=== PATIENT | female | born 1975 | race African-American/Black ===

== ENCOUNTER 2022-07-30 15:08 | Observation (INO) ==
--- NOTE | 2022-07-30 15:42 | DR.NAUSEAF ---
HPI Time Seen Time Seen by Provider: 07/30/22 15:42 Primary Care Physician Primary Care Physician: APPLE HOROWITZ AT [facility] Complaints Chief Complaint:: WAS SEEN IN [facility] ON SATURDAY AND SATURDAY FOR VOMITTING AND CONT TO HAVE SAME SX X4 DAYS NOW. STOMACH AND BACK PAIN, WEAKNESS. HAVING EPIGASTRIC AND LOWER ABDOMINAL PAIN AND BILAT FLANK PAIN Self Treatment fo Chief Complaint: IS BEING TREATED FOR UTI BUT UNABLE TO HOLD DOWN MEDS COVID-19 Coronavirus risk:travel/contact w/high risk person: No Has patient experienced Coronavirus symptoms: No Source History Provided: Family Member Mode of Arrival Mode of Arrival: Wheelchair Timing Onset of Chief Complaint: 07/26/22 PMH PMH Past Medical History: Yes Past Medical History: Diabetes and Hypertension Past Medical History Comment: CHRONIC PANCREATITIS Past Surgical History: Yes Surgical History: and Cholecystectomy Family History History of Family Medical Conditions: Yes Family Medical History: Diabetes Mellitus and Hypertension Social History Does patient currently use any type of tobacco product: Yes Have you used tobacco products in the last 12 months: Yes Type of Tobacco Use: Smokeless Does any household member use tobacco: Yes Alcohol Use: Occasionally Do you use any recreational Drugs:: No Lives With: Alone Lives Where: Home Travel Risk Coronavirus risk:travel/contact w/high risk person: No Has patient experienced Coronavirus symptoms: No Infectious screening In the last 2 months have you had wt loss of >10#?: NO Have you had fever, night sweats or hemotysis?: No Have you traveled outside the country in the last 6 months?: No Isolation: Standard PE Vital Signs Vitals: Temperature 97.6 F Pulse Rate 108 Respiratory Rate 20 Blood Pressure [Left Arm] 173/97 Blood Pressure 135/83 O2 Sat by Pulse Oximetry 100 ROR Labs Reviewed Result Diagrams: 07/30/22 16:30 07/30/22 16:30 Laboratory: WBC 7.9 X10^3/uL (3.6-10.0) 07/30/22 16:30 RBC 4.48 X10^6/uL (3.5-5.4) 07/30/22 16:30 Hgb 10.4 g/dL (12.0-16.0) L 07/30/22 16:30 Hct 34.1 % (36.0-47.0) L 07/30/22 16:30 MCV 76.2 fL (80.0-100.0) L 07/30/22 16:30 MCH 23.2 pg (27.0-34.0) L 07/30/22 16: MCHC 30.4 g/dL (33.0-35.0) L 07/30/22 16:30 RDW 18.8 % (11.6-16.5) H 07/30/22 16:30 Plt Count 319 X10^3/uL (150.0-450.0) 07/30/22 16:30 MPV 9.1 fL (7.4-11.0) 07/30/22 16:30 Neut % (Auto) 77.2 % (42.0-75.0) H 07/30/22 16: Lymph % (Auto) 13.0 % (21.0-51.0) L 07/30/22 16:30 [place] % (Auto) 9.0 % (0.0-13.0) 07/30/22 16: Eos % (Auto) 0.0 % (0.9-2.9) L 07/30/22 16:30 Baso % (Auto) 0.8 % (0.2-1.0) 07/30/22 16:30 Neut # (Auto) 6.1 x10^3/uL (2.2-4.8) H 07/30/22 16:30 Lymph # (Auto) 1.0 X10^3/uL (1.3-2.9) L 07/30/22 16:30 [place] # (Auto) 0.7 x10^3/uL (0.3-0.8) 07/30/22 16:30 Eos # (Auto) 0.0 x10^3/uL (0.0-0.2) 07/30/22 16:30 Baso # (Auto) 0.1 X10^3/uL (0.0-0.1) 07/30/22 16: Absolute Nucleated RBC 0.0 /100WBC 07/30/22 16:30 Sample Site Rr 07/30/22 20:52 ABG pH 7.360 (7.35-7.45) 07/30/22 20:52 ABG pCO2 31.0 mmHg (35.0-45.0) L 07/30/22 20:52 ABG pO2 100.0 mmHg (80.0-100.0) 07/30/22 20:52 ABG HCO3 17.5 mmol/L (22-26) L* 07/30/22 20:52 ABG O2 Saturation 97.0 % (90-100) 07/30/22 20:52 ABG Base Excess -6.9 mmol/L (-2.0-2.0) L 07/30/22 20:52 [place] Test Pos 07/30/22 20:52 A-a Gradient 11.0 mmHg 07/30/22 20:52 FiO2 21.0 07/30/22 20:52 Blood Gas Comments Precious well sw 07/30/22 20:52 Sodium 142 mmol/L (136-145) 07/30/22 16:30 Corrected Sodium 152 mmol/L (136-145) H 07/30/22 16:30 Potassium 4.5 mmol/L (3.5-5.1) 07/30/22 16:30 Chloride 101 mmol/L (98-107) 07/30/22 16:30 Carbon Dioxide 21.6 mmol/L (21-32) 07/30/22 16:30 BUN 33 mg/dL (7-18) H 07/30/22 16:30 Creatinine 1.81 mg/dL (0.55-1.02) H 07/30/22 16:30 Est GFR (MDRD) Af Amer 38 (>60) L 07/30/22 16:30 Est GFR (MDRD) Non-Af 32 (>60) L 07/30/22 16:30 Glucose 499 mg/dL (65-99) H 07/30/22 16:30 POC Glucose (mg/dL) 173 mg/dL (65-99) H 07/30/22 22:16 Calcium 9.2 mg/dL (8.5-10.1) 07/30/22 16:30 Corrected Calcium TNP 07/30/22 16:30 Total Bilirubin 0.80 mg/dL (0.2-1.0) 07/30/22 16:30 AST 14 Units/L (15-37) L 07/30/22 16:30 ALT 25 Units/L (12-78) 07/30/22 16:30 Alkaline Phosphatase 99 Units/L (46-116) 07/30/22 16:30 Total Protein 8.2 g/dL (6.4-8.2) 07/30/22 16:30 Albumin 3.9 g/dL (3.4-5.0) 07/30/22 16:30 Globulin 4.3 g/dL (2.5-4.5) 07/30/22 16:30 Albumin/Globulin Ratio 0.9 Ratio (1.1-2.1) L 07/30/22 16:30 Amylase 49 Units/L (25-115) 07/30/22 16:30 Lipase 18 Units/L (73-393) L 07/30/22 16:30 Specimen Type Clean catch urine 07/30/22 15:50 Urine Color Yellow (YELLOW) 07/30/22 15:50 Urine Appearance Hazy (CLEAR) 07/30/22 15:50 Urine pH 5.0 (5.0 - 8.0) 07/30/22 15:50 Ur Specific [place] 1.020 (1.000-1.030) 07/30/22 15:50 Urine Protein 3+ (NEGATIVE) 07/30/22 15:50 Urine Glucose (UA) 4+ (NEGATIVE) 07/30/22 15:50 Urine Ketones 4+ (NEGATIVE) 07/30/22 15:50 Urine Blood 2+ (NEGATIVE) 07/30/22 15:50 Urine Nitrite Negative (NEGATIVE) 07/30/22 15:50 Urine Bilirubin 1+ (NEGATIVE) 07/30/22 15:50 Urine Urobilinogen Normal (NORMAL) 07/30/22 15:50 Ur Leukocyte Esterase 2+ (NEGATIVE) 07/30/22 15:50 Urine RBC 0-2 /HPF (0-3) 07/30/22 15:50 Urine WBC 20-30 /HPF (0-5) A 07/30/22 15:50 Ur Squamous Epith Cells Few /HPF (NEGATIVE) 07/30/22 15:50 Urine Bacteria Trace /HPF (NEGATIVE) 07/30/22 15:50 Hyaline Casts Few /LPF (NEGATIVE) 07/30/22 15:50 Urine Mucus Rare /HPF (NEGATIVE) 07/30/22 15:50 Ur Culture Indicated? Yes/culture set up 07/30/22 15:50 Acetone, Semi-Quant Large (NEGATIVE) H 07/30/22 16:30 Opioid Opioid Risk Tool Age (Phani box if 16-45): No History of Preadolescent Sexual Abuse: No Total: 0 Total Score Risk Category: Low Risk Copyright: Oliver FISHMAN predicting aberrant behaviors Discharge Plan Diagnosis Discharge Problem: Acute dehydration, UTI (urinary tract infection), Hyperglycemia, Diabetic ketosis Discharge Plan Patient Disposition: 09 ADMITTED INPATIENT Condition: Stable Orders to Discharge Patient Discharge Orders: Transfer (Routine); Ordered 07/30/22 Ordered By: BELINDA CHAVEZ
[2022-07-30] MEDS ORDERED: ZOFRAN INJ 4 MG VIAL IVP ONE ×2 (15:56→21:18)
[2022-07-30] MEDS ORDERED: DEMEROL INJ IVP ONE (15:56)
[2022-07-30] MEDS ORDERED: NS 1,000 ML IV 1,000 ML IV ONE ×2 (15:56→20:43)
[2022-07-30] MEDS ORDERED: ZOFRAN INJ 4 MG VIAL ONE ×2 (15:57→21:03)
[2022-07-30] MEDS ORDERED: NS 1,000 ML IV 1,000 ML ONE ×2 (15:57→21:03)
[2022-07-30] MEDS ORDERED: NS 50 ML IV 50 ML IV ONE (15:58)
[2022-07-30] MEDS ORDERED: PEPCID 20 MG VIAL 20 MG in NS 50 ML IV 50 ML IV ONE (15:58)
[2022-07-30] MEDS ORDERED: PEPCID 20 MG VIAL ONE (15:58)
[2022-07-30] MEDS ORDERED: DEMEROL INJ ONE (16:00)
[2022-07-30 16:28] LABS: BILIRUBIN,URINE 1+ (NEGATIVE); BLOOD/HEMOGLOBIN,URINE 2+ (NEGATIVE); GLUCOSE, URINE 4+ (NEGATIVE); KETONES,URINE 4+ (NEGATIVE); LEUKOCYTE ESTERASE ,URINE 2+ (NEGATIVE); NITRITES,URINE NEGATIVE (NEGATIVE); PROTEIN,URINE 3+ (NEGATIVE); UROBILINOGEN,URINE NORMAL (NORMAL)
[2022-07-30 16:40] LABS: BASOPHILS # (AUTO) 0.1 X10^3/uL (0.0-0.1); BASOPHILS % (AUTO) 0.8 % (0.2-1.0); HEMATOCRIT 34.1 % (36.0-47.0); HEMOGLOBIN 10.4 g/dL (12.0-16.0); MEAN CORPUSCULAR HEMOGLOBIN 23.2 pg (27.0-34.0); MEAN CORPUSCULAR HGB CONC 30.4 g/dL (33.0-35.0); MEAN CORPUSCULAR VOLUME 76.2 fL (80.0-100.0); MEAN PLATELET VOLUME 9.1 fL (7.4-11.0); MONOCYTES # (AUTO) 0.7 x10^3/uL (0.3-0.8); NEUTROPHILS # (AUTO) 6.1 x10^3/uL (2.2-4.8); NEUTROPHILS % (AUTO) 77.2 % (42.0-75.0); RED BLOOD COUNT 4.48 X10^6/uL (3.5-5.4); RED CELL DISTRIBUTION WIDTH 18.8 % (11.6-16.5); WHITE BLOOD COUNT 7.9 X10^3/uL (3.6-10.0)
[2022-07-30 16:45] LABS: APPEARANCE,URINE HAZY (CLEAR); BACTERIA,URINE TRACE /HPF (NEGATIVE); COLOR,URINE YELLOW (YELLOW); HYALINE CASTS, URINE FEW /LPF (NEGATIVE); RBC,URINE 0-2 /HPF (0-3); SQUAMOUS EPITHELIAL CELL,UR FEW /HPF (NEGATIVE)
[2022-07-30 16:52] LABS: SERUM ACETONE LARGE (NEGATIVE)
[2022-07-30 17:21] LABS: ALANINE AMINOTRANSFERASE 25 Units/L (12-78); ALBUMIN 3.9 g/dL (3.4-5.0); ALKALINE PHOSPHATASE 99 Units/L (46-116); AMYLASE 49 Units/L (25-115); ASPARTATE AMINO TRANSFERASE 14 Units/L (15-37); BLOOD UREA NITROGEN 33 mg/dL (7-18); CALCIUM 9.2 mg/dL (8.5-10.1); CARBON DIOXIDE 21.6 mmol/L (21-32); CHLORIDE 101 mmol/L (98-107); COR NA(FOR HYPERGLY) 152 mmol/L (136-145); CREATININE 1.81 mg/dL (0.55-1.02); LIPASE 18 Units/L (73-393); SODIUM 142 mmol/L (136-145); TOTAL PROTEIN 8.2 g/dL (6.4-8.2); eGFR NON BLACK RACES 32 (>60)
[2022-07-30] MEDS ORDERED: ROCEPHIN VIAL 1 GRAM 1 G in NS 100 ML IV 100 ML IV ONE (20:06)
[2022-07-30] MEDS ORDERED: ROCEPHIN VIAL 1 GRAM ONE (20:10)
[2022-07-30] MEDS ORDERED: NS 100 ML IV 100 ML ONE (20:10)
[2022-07-30] MEDS ORDERED: NovoLIN R (or HumuLIN R) IV ONE (20:55)
[2022-07-30] MEDS ORDERED: NovoLIN R (or HumuLIN R) ONE (21:04)
[2022-07-30 21:12] LABS: ABG ALLEN TEST POS; ABG BASE EXCESS -6.9 mmol/L (-2.0-2.0); ABG HCO3 17.5 mmol/L (22-26)
[2022-07-30] MEDS ORDERED: NovoLIN R (or HumuLIN R) SC PRN (22:30)
[2022-07-30] MEDS: NS 1,000 ML IV 1,000 ML IV SCH (22:52)
[2022-07-30] MEDS ORDERED: CATAPRES TAB 0.1 MG PO ONE (22:55)
--- NOTE | 2022-07-30 23:06 | EKG ---
Test Reason : hypertension protocol Blood Pressure : */* mmHG Vent. Rate : 99 BPM Atrial Rate : 99 BPM P-R Int : 146 ms QRS Dur : 64 ms QT Int : 364 ms P-R-T Axes : 77 34 64 degrees QTc Int : 467 ms Normal sinus rhythm Anteroseptal infarct , age undetermined Abnormal ECG No previous ECGs available Confirmed by Neftali Simon ([id number]) on 07/31/2022 7:42:15 AM Referred By: Confirmed By: Neftali Simon
[2022-07-30] MEDS: ZOFRAN INJ 4 MG VIAL IVP PRN (23:15)
[2022-07-30] MEDS ORDERED: APRESOLINE INJ 20 MG VIAL IVP ONE (23:15)
[2022-07-30] MEDS: VISTARIL PO SCH (23:28)
[2022-07-30] MEDS: ULTRAM PO PRN (23:28)
[2022-07-30] MEDS: REMERON PO SCH (23:29)
[2022-07-30] MEDS: SEROquel TAB 25 mg PO SCH (23:29)
[2022-07-30 23:49] VITALS: BMI 19.8
--- NOTE | 2022-07-31 00:41 | CT ---
HISTORYPt c/o persistent n/v x 4 daysSTUDYABDOMEN/PELVIS W/O OHJLEFLCSETOD22/05/2021TECHNIQUEMultiple axial images of the abdomen and pelvis were obtained from the lung bases to the pubic symphysis without the administration of IV contrast. Dose reduction techniques including Automated Exposure Control (AEC) and adjustment of mA and kV were utilized.FINDINGSThe visualized portions of the lung bases are unremarkable . The liver, spleen, and adrenal glands are unremarkable in their CT appearance. Post cholecystectomy changes. There is extensive calcification throughout the pancreas consistent with chronic pancreatitis. The kidneys are normal in size. Nonobstructing calculus within the lower pole of the left kidney.. No significant mesenteric lymphadenopathy or stranding can be observed. No free fluid or free air is seen within the abdomen. Normal appendix right lower quadrant. No bowel wall thickening or bowel dilatation is present. The colon is unremarkable. Specifically, there is no diverticulosis noted within the sigmoid colon. The urinary bladder is grossly unremarkable. The uterus is present. The bony structures are grossly intact.IMPRESSIONPost cholecystectomy changes.Left nephrolithiasis, nonobstructing.Chronic pancreatitis.No acute abdominal or pelvic pathologyElectronically signed by: Jose Alberto Bustos (Jul 31, 2022 00:40:59)
[2022-07-31] MEDS ORDERED: DILAUDID INJ IVP ONE ×2 (01:09→04:30)
[2022-07-31] MEDS ORDERED: COLACE CAP 100 MG PO ONE ×2 (01:10→02:00)
[2022-07-31] MEDS: LINZESS PO ONE ×2 (01:33→14:33)
[2022-07-31] MEDS ORDERED: PHENERGAN INJ 25 MG IM ONE (04:37)
[2022-07-31 05:13] LABS: BASOPHILS # (AUTO) 0.1 X10^3/uL (0.0-0.1); BASOPHILS % (AUTO) 1.2 % (0.2-1.0); EOSINOPHILS # (AUTO) 0.2 x10^3/uL (0.0-0.2); EOSINOPHILS % (AUTO) 2.1 % (0.9-2.9); HEMATOCRIT 27.3 % (36.0-47.0); HEMOGLOBIN 8.5 g/dL (12.0-16.0); LYMPHOCYTES # (AUTO) 2.1 X10^3/uL (1.3-2.9); LYMPHOCYTES % (AUTO) 29.3 % (21.0-51.0); MEAN CORPUSCULAR HEMOGLOBIN 23.1 pg (27.0-34.0); MEAN CORPUSCULAR HGB CONC 30.9 g/dL (33.0-35.0); MEAN CORPUSCULAR VOLUME 74.6 fL (80.0-100.0); MEAN PLATELET VOLUME 9.4 fL (7.4-11.0); MONOCYTES # (AUTO) 0.8 x10^3/uL (0.3-0.8); MONOCYTES % (AUTO) 11.5 % (0.0-13.0); NEUTROPHILS # (AUTO) 4.1 x10^3/uL (2.2-4.8); NEUTROPHILS % (AUTO) 55.9 % (42.0-75.0); RED BLOOD COUNT 3.66 X10^6/uL (3.5-5.4); RED CELL DISTRIBUTION WIDTH 18.6 % (11.6-16.5); WHITE BLOOD COUNT 7.3 X10^3/uL (3.6-10.0)
[2022-07-31 05:28] LABS: ALBUMIN 3.1 g/dL (3.4-5.0); CALCIUM 8.3 mg/dL (8.5-10.1); CARBON DIOXIDE 19.3 mmol/L (21-32); CREATININE 1.25 mg/dL (0.55-1.02); MAGNESIUM 1.9 mg/dL (2.0-2.9); TOTAL PROTEIN 6.8 g/dL (6.4-8.2)
[2022-07-31 05:32] LABS: ANISOCYTOSIS SLIGHT; HYPOCHROMASIA 1+; MICROCYTOSIS SLIGHT; OVALOCYTES PRESENT; PLATELET MORPHOLOGY COMMENT NORMAL (NORMAL)
[2022-07-31] MEDS: VISTARIL PO SCH ×4 (05:40→21:12)
[2022-07-31] MEDS: NS 1,000 ML IV 1,000 ML IV SCH ×3 (06:22→21:37)
[2022-07-31] MEDS ORDERED: LEXAPRO ONE (09:43)
[2022-07-31] MEDS ORDERED: NS 100 ML IV 100 ML with VENOFER 400 MG IV NR ×2 (09:46)
[2022-07-31] MEDS: NORVASC TAB 5 MG PO SCH (09:48)
[2022-07-31] MEDS: LEXAPRO PO SCH (09:48)
[2022-07-31] MEDS: ZOFRAN INJ 4 MG VIAL IVP PRN ×2 (10:33→16:01)
[2022-07-31] MEDS: PHENERGAN INJ 25 MG IM ONE ×2 (14:08→21:06)
[2022-07-31] MEDS ORDERED: DILAUDID INJ IVP PRN ×2 (15:49→18:11)
[2022-07-31] MEDS ORDERED: PHENERGAN INJ 25 MG IM PRN (15:50)
--- NOTE | 2022-07-31 17:18 | RAD ---
HISTORYN/V/D, ABD PAINSTUDYKUBCOMPARISONCT abdomen/pelvis from July 31, 2022TECHNIQUEAP supine projection, 1 imageFINDINGSGas and stool in non-distended colon.Gas in scattered loops of non-distended small bowel.No gross free air.Calcifications in the pancreas are consistent with chronic pancreatitis.Status post cholecystectomy.No acute osseous abnormality.IMPRESSIONNo acute intra-abdominal abnormality detected.Electronically signed by: Marck Dey (Jul 31, 2022 17:17:42)
[2022-07-31] MEDS: SEROquel TAB 25 mg PO SCH (21:12)
[2022-07-31] MEDS: REMERON PO SCH (21:12)
[2022-08-01] MEDS: NS 1,000 ML IV 1,000 ML IV SCH ×2 (01:06→16:27)
[2022-08-01] MEDS ORDERED: LINZESS PO ONE ×2 (03:38)
[2022-08-01] MEDS: LINZESS PO ONE ×2 (03:46→03:51)
[2022-08-01 05:11] LABS: BASOPHILS # (AUTO) 0.1 X10^3/uL (0.0-0.1); BASOPHILS % (AUTO) 1.8 % (0.2-1.0); EOSINOPHILS # (AUTO) 0.3 x10^3/uL (0.0-0.2); EOSINOPHILS % (AUTO) 5.9 % (0.9-2.9); HEMATOCRIT 27.2 % (36.0-47.0); HEMOGLOBIN 8.6 g/dL (12.0-16.0); LYMPHOCYTES % (AUTO) 37.5 % (21.0-51.0); MEAN CORPUSCULAR HEMOGLOBIN 23.4 pg (27.0-34.0); MEAN CORPUSCULAR HGB CONC 31.6 g/dL (33.0-35.0); MEAN CORPUSCULAR VOLUME 74.2 fL (80.0-100.0); MEAN PLATELET VOLUME 8.7 fL (7.4-11.0); MONOCYTES # (AUTO) 0.5 x10^3/uL (0.3-0.8); MONOCYTES % (AUTO) 9.6 % (0.0-13.0); NEUTROPHILS # (AUTO) 2.4 x10^3/uL (2.2-4.8); NEUTROPHILS % (AUTO) 45.2 % (42.0-75.0); RED BLOOD COUNT 3.66 X10^6/uL (3.5-5.4); RED CELL DISTRIBUTION WIDTH 18.4 % (11.6-16.5); WHITE BLOOD COUNT 5.2 X10^3/uL (3.6-10.0)
[2022-08-01 05:24] LABS: ALANINE AMINOTRANSFERASE 17 Units/L (12-78); ALBUMIN 2.7 g/dL (3.4-5.0); ALKALINE PHOSPHATASE 77 Units/L (46-116); ASPARTATE AMINO TRANSFERASE 16 Units/L (15-37); BLOOD UREA NITROGEN 15 mg/dL (7-18); CALCIUM 8.1 mg/dL (8.5-10.1); CARBON DIOXIDE 25.2 mmol/L (21-32); CHLORIDE 108 mmol/L (98-107); COR CA(FOR HYPOALB) 9.1 mg/dL (8.5-10.1); COR NA(FOR HYPERGLY) 148 mmol/L (136-145); SODIUM 145 mmol/L (136-145); TOTAL PROTEIN 6.4 g/dL (6.4-8.2); eGFR NON BLACK RACES 56 (>60)
[2022-08-01 05:30] LABS: ANISOCYTOSIS SLIGHT; HYPOCHROMASIA 1+; MICROCYTOSIS SLIGHT; PLATELET MORPHOLOGY COMMENT NORMAL (NORMAL)
[2022-08-01] MEDS: VISTARIL PO SCH ×2 (05:33→16:57)
[2022-08-01] MEDS ORDERED: LEXAPRO ONE (07:33)
[2022-08-01] MEDS: NORVASC TAB 5 MG PO SCH (08:07)
[2022-08-01] MEDS: LEXAPRO PO SCH (08:07)
[2022-08-01] MEDS: COREG TAB 12.5 MG PO SCH ×2 (09:22→20:04)
[2022-08-01] MEDS: ULTRAM PO PRN (19:25)
[2022-08-01] MEDS: REMERON PO SCH (20:04)
[2022-08-01] MEDS: SEROquel TAB 25 mg PO SCH (20:04)
[2022-08-01 20:13] VITALS: BP 135/80
== END 2022-08-01 20:42 | disposition home or self-care (01) ==
LOC: ER 15:08 → ICU 22:28 → INTOOBSV 22:28 → ICU 22:39
PROVIDERS: ADMIT Obstetrics & Gynecology Obstetrics; ATTEND Obstetrics & Gynecology Obstetrics
DX: R11.2 Nausea with vomiting, unspecified; R10.30 Lower abdominal pain, unspecified; R10.13 Epigastric pain; N39.0 Urinary tract infection, site not specified; K92.1 Melena; D64.89 Other specified anemias; K59.09 Other constipation; E11.65 Type 2 diabetes mellitus with hyperglycemia; E87.0 Hyperosmolality and hypernatremia; E11.10 Type 2 diabetes mellitus with ketoacidosis without coma; K86.1 Other chronic pancreatitis; E86.0 Dehydration

== ENCOUNTER 2022-08-02 23:40 | Observation (INO) ==
[2022-08-02] MEDS ORDERED: NS 1,000 ML IV 1,000 ML IV ONE (23:49)
[2022-08-02] MEDS ORDERED: ZOFRAN INJ 4 MG VIAL IVP ONE (23:49)
[2022-08-02] MEDS ORDERED: PROTONIX INJ 40 MG VIAL IVP ONE (23:49)
--- NOTE | 2022-08-02 23:50 | DR.NAUSEAF ---
HPI Time Seen Time Seen by Provider: 08/02/22 23:49 Complaints Chief Complaint Doctors Comments: 47 y/o female presents with vomiting. Was recently admitted to the hospital on 07/31, and d/c'd yesterday for the same issue. Pt states is feeling worse since d/c. Having frequent nausea/vomiting. Having abdominal pain, across the upper abdomen, radiates into the back. Worse with vomiting, nothing makes it better. Unable to keep down food, fluids, or her meds. Moved her bowels earlier today, no diarrhea. Denies fever, URI symptoms. Reviewed Nurses Notes Reviewed: Yes Source History Provided: Patient PMH PMH Past Medical History: Diabetes and Hypertension Past Surgical History: Yes Surgical History: and Cholecystectomy Family History Family Medical History: Diabetes Mellitus and Hypertension Social History Does patient currently use any type of tobacco product: Yes Alcohol Use: None Do you use any recreational Drugs:: No ROS Review of Systems Constitutional: Weakness Eyes: Other (h/o blindness) ENTM: No Symptoms Reported Respiratoy: No Symptoms Reported Cardiovascular: Chest Pain Gastrointestinal/Abdominal: Abdominal Pain, Nausea and Vomiting Genitourinary: No Symptoms Reported Neurological: Weakness Musculoskeletal: No Symptoms Reported Integumentary: No Symptoms Reported Hematologic/Lymphatic: No Symptoms Reported All Other Systems: Reviewed and Negative PE Vital Signs Vitals: Temperature 98.0 F Pulse Rate 86 Respiratory Rate 20 Blood Pressure [Left Arm] 135/80 Blood Pressure 152/93 O2 Sat by Pulse Oximetry 100 General General Appearance: Alert and In Distress (moaning out periodically) ENT ENT Exam: Normal Exam and Mucous Membranes Moist Neck Neck Exam: Normal Inspection and Full ROM; negative Tenderness Respiratory Respiratory Exam: Normal Lung Sounds Bilat; negative Accessory Muscle Use or Respiratory Distress Cardiovascular Cardiovascular Exam: Regular Rate and Normal Rhythm Abdominal Exam Abdominal Exam: Soft and Tenderness (epigasric, RLQ. No rebound.) Extremities Extremities Exam: Normal Inspection; negative Edema Back Back Exam: (L) CVA Tenderness Neurologic Neurological Exam: Alert and Oriented X3; negative Motor Sensory Deficit Skin Skin Exam: Warm and Dry COURSE Treatment Treatment: 47 y/o female with h/o HTN, DM presents with worsening abdominal pain, vomiting since being d/c'd from the hospital yesterday. W/u initiated. Labs and meds ordered. Pt very difficult IV stick. Pt givne IM zofran/dilaudid. Dr Degroot consulted for a central line, came and placed a line in her left subclavian. Pt given IV fluids, IV protonix. Lasb show WBC normal, has degree of anemia, Hgb 9.7. Glucose elevated at 235, potassium slightly low at 3.2. Has small amount of acetone in the blood, has a normal bicarb on chemistries. CXR without obvious free air. Will pursue CT of the abd/pelvis with IV contrast for further evaluation. BP has been very elevated, given IV hydralazine. 0400 - CT without acute abnormaities. Pt was given additional round of dilaudid/zofran. 0625 - pt has been resting, feeling pain/nausea returning. Pt not able to take po well yet, has intractable vomiting, unable to take her meds. Recommend admission for for further treatment. Dr Crawley integration solution architect, admitted her the other day, accepts observation admission. ROR Labs Reviewed Laboratory Results Reviewed?: Yes Result Diagrams: 08/03/22 00:50 08/03/22 00:50 Laboratory: WBC 4.2 X10^3/uL (3.6-10.0) 08/03/22 00:50 RBC 4.22 X10^6/uL (3.5-5.4) 08/03/22 00:50 Hgb 9.7 g/dL (12.0-16.0) L 08/03/22 00:50 Hct 30.9 % (36.0-47.0) L 08/03/22 00:50 MCV 73.1 fL (80.0-100.0) L 08/03/22 00:50 MCH 22.9 pg (27.0-34.0) L 08/03/22 00:50 MCHC 31.4 g/dL (33.0-35.0) L 08/03/22 00:50 RDW 18.6 % (11.6-16.5) H 08/03/22 00:50 Plt Count 244 X10^3/uL (150.0-450.0) 08/03/22 00:50 Plt Count Comment Adequate (ADEQUATE) 08/03/22 00:50 MPV 8.2 fL (7.4-11.0) 08/03/22 00:50 Neut % (Auto) 70.7 % (42.0-75.0) 08/03/22 00:50 Lymph % (Auto) 17.9 % (21.0-51.0) L 08/03/22 00:50 [place] % (Auto) 8.4 % (0.0-13.0) 08/03/22 00:50 Eos % (Auto) 1.9 % (0.9-2.9) 08/03/22 00:50 Baso % (Auto) 1.1 % (0.2-1.0) H 08/03/22 00:50 Neut # (Auto) 3.0 x10^3/uL (2.2-4.8) 08/03/22 00:50 Lymph # (Auto) 0.7 X10^3/uL (1.3-2.9) L 08/03/22 00:50 [place] # (Auto) 0.3 x10^3/uL (0.3-0.8) 08/03/22 00:50 Eos # (Auto) 0.1 x10^3/uL (0.0-0.2) 08/03/22 00:50 Baso # (Auto) 0.0 X10^3/uL (0.0-0.1) 08/03/22 00:50 Absolute Nucleated RBC 0.1 /100WBC 08/03/22 00:50 Plt Morphology Comment Normal (NORMAL) 08/03/22 00:50 RBC Morphology Abnormal (NORMAL) A 08/03/22 00:50 Hypochromasia 1+ A 08/03/22 00:50 Anisocytosis Slight A 08/03/22 00:50 Microcytosis Slight A 08/03/22 00:50 Sodium 143 mmol/L (136-145) 08/03/22 00:50 Corrected Sodium 148 mmol/L (136-145) H 08/03/22 00:50 Potassium 3.2 mmol/L (3.5-5.1) L 08/03/22 00:50 Chloride 102 mmol/L (98-107) 08/03/22 00:50 Carbon Dioxide 25.5 mmol/L (21-32) 08/03/22 00:50 BUN 9 mg/dL (7-18) 08/03/22 00:50 Creatinine 0.75 mg/dL (0.55-1.02) 08/03/22 00:50 Est GFR (MDRD) Af Amer > 60 (>60) 08/03/22 00:50 Est GFR (MDRD) Non-Af > 60 (>60) 08/03/22 00:50 Glucose 295 mg/dL (65-99) H 08/03/22 00:50 Calcium 8.8 mg/dL (8.5-10.1) 08/03/22 00:50 Corrected Calcium TNP 08/03/22 00:50 Total Bilirubin 0.60 mg/dL (0.2-1.0) 08/03/22 00:50 AST 21 Units/L (15-37) 08/03/22 00:50 ALT 18 Units/L (12-78) 08/03/22 00:50 Alkaline Phosphatase 87 Units/L (46-116) 08/03/22 00:50 Troponin I High Sens 50.9 ng/L (4.0-60.0) 08/03/22 00:50 Total Protein 7.3 g/dL (6.4-8.2) 08/03/22 00:50 Albumin 3.4 g/dL (3.4-5.0) 08/03/22 00:50 Globulin 3.9 g/dL (2.5-4.5) 08/03/22 00:50 Albumin/Globulin Ratio 0.9 Ratio (1.1-2.1) L 08/03/22 00:50 Lipase 13 Units/L (73-393) L 08/03/22 00:50 Specimen Type Catherized urine 08/03/22 00:21 Urine Color Straw (YELLOW) 08/03/22 00:21 Urine Appearance Clear (CLEAR) 08/03/22 00:21 Urine pH 6.0 (5.0 - 8.0) 08/03/22 00:21 Ur Specific [place] 1.015 (1.000-1.030) 08/03/22 00:21 Urine Protein Negative (NEGATIVE) 08/03/22 00: Urine Glucose (UA) 4+ (NEGATIVE) 08/03/22 00: Urine Ketones 3+ (NEGATIVE) 08/03/22 00: Urine Blood Negative (NEGATIVE) 08/03/22 00: Urine Nitrite Negative (NEGATIVE) 08/03/22 00:21 Urine Bilirubin Negative (NEGATIVE) 08/03/22 00:21 Urine Urobilinogen Normal (NORMAL) 08/03/22 00:21 Ur Leukocyte Esterase Negative (NEGATIVE) 08/03/22 00:21 Acetone, Semi-Quant Small (NEGATIVE) H 08/03/22 00:50 Labs overall acceptable. Small acetone in blood. U?A with glucose/ketones. Opioid Opioid Risk Tool Age (Phani box if 16-45): No History of Preadolescent Sexual Abuse: No Total: 0 Total Score Risk Category: Low Risk Copyright: Oliver FISHMAN predicting aberrant behaviors Discharge Plan Diagnosis Discharge Problem: Intractable vomiting, Abdominal pain Discharge Plan Patient Disposition: ADMITTED INPATIENT Condition: Stable Prescriptions: No Action hydroxyzine pamoate 50 mg capsule 50 mg PO TID amlodipine 5 mg tablet 5 mg PO QDAY mirtazapine 15 mg tablet 15 mg PO QPM escitalopram oxalate 10 mg tablet 10 mg PO QDAY docusate sodium [Stool Softener] 100 mg capsule 100 mg PO BID Qty: 60 6RF carvedilol 12.5 mg Tablet 12.5 mg PO BID Qty: 60 3RF polyethylene glycol 3350 [Miralax] 17 gram/dose powder 17 g PO DAILY PRN Health Concerns: Post Hospitalization: new medications and changes needed to prevent readmission or further decline. Pt educated and given instructions on all concerns. Plan of Treatment: Continue with present treatment and follow up plan. Pt is to keep follow up a ppointment as instructed and take medications as ordered. Follow ups/Referrals Follow ups/Referrals: NFD,None [Primary Care Provider] - 3 days
[2022-08-02 23:56] VITALS: BMI 21.2
[2022-08-02] MEDS ORDERED: DILAUDID INJ IVP ONE (23:56)
[2022-08-03 00:34] LABS: BILIRUBIN,URINE NEGATIVE (NEGATIVE); BLOOD/HEMOGLOBIN,URINE NEGATIVE (NEGATIVE); GLUCOSE, URINE 4+ (NEGATIVE); KETONES,URINE 3+ (NEGATIVE); LEUKOCYTE ESTERASE ,URINE NEGATIVE (NEGATIVE); NITRITES,URINE NEGATIVE (NEGATIVE); PROTEIN,URINE NEGATIVE (NEGATIVE); UROBILINOGEN,URINE NORMAL (NORMAL)
[2022-08-03] MEDS ORDERED: DILAUDID INJ IM ONE (00:35)
[2022-08-03] MEDS ORDERED: ZOFRAN INJ 4 MG VIAL IM ONE (00:35)
[2022-08-03 00:38] LABS: APPEARANCE,URINE CLEAR (CLEAR); COLOR,URINE STRAW (YELLOW)
[2022-08-03 01:05] LABS: BASOPHILS % (AUTO) 1.1 % (0.2-1.0); EOSINOPHILS # (AUTO) 0.1 x10^3/uL (0.0-0.2); EOSINOPHILS % (AUTO) 1.9 % (0.9-2.9); HEMATOCRIT 30.9 % (36.0-47.0); HEMOGLOBIN 9.7 g/dL (12.0-16.0); LYMPHOCYTES # (AUTO) 0.7 X10^3/uL (1.3-2.9); LYMPHOCYTES % (AUTO) 17.9 % (21.0-51.0); MEAN CORPUSCULAR HEMOGLOBIN 22.9 pg (27.0-34.0); MEAN CORPUSCULAR HGB CONC 31.4 g/dL (33.0-35.0); MEAN CORPUSCULAR VOLUME 73.1 fL (80.0-100.0); MEAN PLATELET VOLUME 8.2 fL (7.4-11.0); MONOCYTES # (AUTO) 0.3 x10^3/uL (0.3-0.8); MONOCYTES % (AUTO) 8.4 % (0.0-13.0); NEUTROPHILS % (AUTO) 70.7 % (42.0-75.0); RED BLOOD COUNT 4.22 X10^6/uL (3.5-5.4); RED CELL DISTRIBUTION WIDTH 18.6 % (11.6-16.5); WHITE BLOOD COUNT 4.2 X10^3/uL (3.6-10.0)
[2022-08-03 01:18] LABS: SERUM ACETONE SMALL (NEGATIVE)
[2022-08-03 01:20] LABS: ALANINE AMINOTRANSFERASE 18 Units/L (12-78); ALBUMIN 3.4 g/dL (3.4-5.0); ALKALINE PHOSPHATASE 87 Units/L (46-116); ASPARTATE AMINO TRANSFERASE 21 Units/L (15-37); BLOOD UREA NITROGEN 9 mg/dL (7-18); CALCIUM 8.8 mg/dL (8.5-10.1); CARBON DIOXIDE 25.5 mmol/L (21-32); CHLORIDE 102 mmol/L (98-107); COR NA(FOR HYPERGLY) 148 mmol/L (136-145); CREATININE 0.75 mg/dL (0.55-1.02); LIPASE 13 Units/L (73-393); SODIUM 143 mmol/L (136-145); TOTAL PROTEIN 7.3 g/dL (6.4-8.2); eGFR NON BLACK RACES > 60 (>60)
[2022-08-03 01:23] LABS: ANISOCYTOSIS SLIGHT; PLATELET MORPHOLOGY COMMENT NORMAL (NORMAL)
[2022-08-03 01:24] LABS: HYPOCHROMASIA 1+; MICROCYTOSIS SLIGHT
[2022-08-03] MEDS ORDERED: APRESOLINE INJ 20 MG VIAL IVP ONE (01:32)
[2022-08-03] MEDS ORDERED: DILAUDID INJ IVP ONE ×2 (01:44→06:55)
[2022-08-03] MEDS ORDERED: ZOFRAN INJ 4 MG VIAL IVP ONE ×2 (01:45→06:55)
[2022-08-03] MEDS ORDERED: HumaLOG SC PRN (07:07)
[2022-08-03] MEDS ORDERED: DILAUDID INJ IVP PRN (07:07)
[2022-08-03] MEDS ORDERED: ZOFRAN INJ 4 MG VIAL IVP PRN (07:07)
[2022-08-03] MEDS: NS 1/2 + KCL 20 MEQ/L 1,000 ML IV SCH ×4 (07:16→23:00)
[2022-08-03] MEDS ORDERED: COMPAZINE INJ IVP PRN (09:57)
[2022-08-03] MEDS ORDERED: TYLENOL 500 MG TAB EXTRA STRENGTH PO PRN (09:59)
[2022-08-03] MEDS: LEXAPRO PO SCH (10:47)
[2022-08-03] MEDS: NORVASC TAB 5 MG PO SCH (10:47)
[2022-08-03] MEDS: COREG TAB 12.5 MG PO SCH ×2 (10:47→20:49)
[2022-08-03] MEDS: COLACE CAP 100 MG PO SCH ×2 (10:47→20:41)
[2022-08-03] MEDS: ERYTHROMYCIN BASE PO SCH ×2 (10:47→16:41)
[2022-08-03] MEDS: CARAFATE ORAL SUSP PO SCH ×3 (10:47→20:41)
[2022-08-03] MEDS ORDERED: COMPAZINE PO ONE (13:30)
[2022-08-03] MEDS: ULTRAM PO PRN ×2 (13:30→20:49)
[2022-08-03] MEDS ORDERED: REMERON PO SCH (21:00)
[2022-08-03] MEDS: NovoLIN R (or HumuLIN R) SUBCUT PRN (21:35)
[2022-08-04] MEDS: ERYTHROMYCIN BASE PO SCH ×3 (05:37→16:47)
[2022-08-04] MEDS: CARAFATE ORAL SUSP PO SCH ×3 (05:37→16:47)
[2022-08-04] MEDS: NS 1/2 + KCL 20 MEQ/L 1,000 ML IV SCH ×2 (06:53→16:03)
[2022-08-04] MEDS: NORVASC TAB 5 MG PO SCH (08:18)
[2022-08-04] MEDS: COLACE CAP 100 MG PO SCH (08:18)
[2022-08-04] MEDS: COREG TAB 12.5 MG PO SCH (08:18)
[2022-08-04] MEDS: LEXAPRO PO SCH (08:18)
[2022-08-04] MEDS: ULTRAM PO PRN (08:19)
[2022-08-04] MEDS: NovoLIN R (or HumuLIN R) SUBCUT PRN (12:58)
[2022-08-04 16:47] VITALS: BP 95/62
--- NOTE | 2022-08-04 18:27 | DR.OPNOTE ---
OP NOTE Pre-Op Diagnosis: Abdominal pain, lack of IV access Post-Op Diagnosis: same Procedure Date Date Of Procedure: 08/02/22 Procedure: PROCEDURE: LEFT SUBCLAVIAN VEIN TRIPLE LUMEN CATHETER PLACEMENT NARRATIVE : The patient was placed in Trendelenburg position and the left neck and left chest prepped and draped in sterile fashion. The skin under the left clavicle was infiltrated with 1 % Xylocaine. 16-gauge needle used to puncture the left subclavian vein and guidewire placed without difficulty. Incision over the guide wire at the skin edge made with a number 11 knife blade and a dilator placed over the guide wire into the left subclavian vein. The dilator removed and the catheter placed over the guide wire and into the left subclavian vein. Dilator removed and the catheter placed over the guide wire into the left subclavian vein . All ports aspirated of blood and flushed with heparinized saline . Chest x-ray showed good placement with no pneumothorax. Type of Anesthesia: Local (1% Xylocaine) Findings: as above Type of Fluids Used:: Normal Saline EBL: minimal Complications:: none Needle/Sponge Count:: correct Disposition/Condition: Pt. tolerated procedure without difficulty.Post procedure CXR shows good placement of left subclavian central line and no pneumothorax.
[2022-08-04] MEDS ORDERED: SNACK - Diabetic Appropriate PO SCH (20:00)
== END 2022-08-04 20:50 | disposition home or self-care (01) ==
LOC: ER 23:42 → ICU 23:42
PROVIDERS: ADMIT Obstetrics & Gynecology Obstetrics; ATTEND Obstetrics & Gynecology Obstetrics
DX: R11.2 Nausea with vomiting, unspecified; M54.9 Dorsalgia, unspecified; R73.09 Other abnormal glucose; K31.84 Gastroparesis; R10.84 Generalized abdominal pain; I10 Essential (primary) hypertension

== ENCOUNTER 2022-08-05 13:15 | Observation (INO) ==
--- NOTE | 2022-08-05 13:23 | DR.CP ---
HPI Time Seen Time Seen by Provider: 08/05/22 13:35 Complaint Chief Complaint Doctor Comments: 47 y/o female returns for recurrent vomiting. Was admitted here 2 days ago, d/c'd yesterday (2nd admission in 1 week). + vomiting on awakening this am. Can keep meds down. + diffuse abd/back pain. Worse with moving, nothing makes it better. + nausea, vomitng. No fever, URI symptoms. + h/o DM. Was admitted with probable gastroparesis last time, persistent UTI. Did fine during hospital stay, no active vomiting. Reviewed Nurses Notes Review: Yes Source History Provided: Patient and Family Member PMH PMH Past Medical History: Diabetes and Hypertension Past Surgical History: Yes Surgical History: and Cholecystectomy Family History Family Medical History: Diabetes Mellitus and Hypertension Social History Do you use any recreational Drugs:: No ROS Review of Systems Constitutional: Weakness Eyes: Other (chronic blindness) ENTM: No Symptoms Reported Respiratoy: No Symptoms Reported Cardiovascular: No Symptoms Reported Gastrointestinal/Abdominal: See HPI Genitourinary: No Symptoms Reported Neurological: Weakness Musculoskeletal: No Symptoms Reported Integumentary: No Symptoms Reported All Other Systems: Reviewed and Negative PE Vitals Vitals: Temperature 98.1 F Pulse Rate 89 Respiratory Rate 16 Blood Pressure [Left Arm] 85/60 Blood Pressure 189/119 O2 Sat by Pulse Oximetry 100 General General Appearance: Alert and In No Apparent Distress ENT ENT Exam: Mucous Membranes Moist Respiratory Respiratory Exam: Normal Lung Sounds Bilat; negative Accessory Muscle Use or Respiratory Distress Cardiovascular Cardiovascular Exam: Regular Rate, Normal Rhythm and Normal Heart Sounds Abdominal Exam Abdominal Exam: Normal Bowel Sounds, Soft and Tenderness (across lower abdomen, no guarding or rebound. ) Extremities Extremities Exam: Normal Inspection and Full ROM; negative Edema Neurologic Neurological Exam: Alert and CN II-XII Intact; negative Motor Sensory Deficit Skin Skin Exam: Warm and Dry COURSE Treatment Treatment: 47 y/o female, 3rd visit this week for vomiting, upper abdominal pain. Was admitted already x 2 this week, no help with d/c meds. Unable to keep meds down today. Is a diabetic. W/u initiated. Pt givne IV fluids, IV zofran/dilaudid. 1703 - pt doing better at the moment. Labs better than they have been past week. No further evidence for UTI. Pt with h/o chronic pancreatitis, probable gastroparesis. Tried to negotiate change of d/c meds. Pt worried because has been having recurrent symptoms x [address] Marie, covering the house, will admit for observation, consult with surgery in am for possible EGD. ROR Labs Reviewed Laboratory Results Reviewed?: Yes Result Diagrams: 08/05/22 14:25 08/05/22 14:25 Laboratory: WBC 6.2 X10^3/uL (3.6-10.0) 08/05/22 14:25 RBC 4.52 X10^6/uL (3.5-5.4) 08/05/22 14:25 Hgb 10.5 g/dL (12.0-16.0) L 08/05/22 14:25 Hct 33.3 % (36.0-47.0) L 08/05/22 14:25 MCV 73.6 fL (80.0-100.0) L 08/05/22 14:25 MCH 23.3 pg (27.0-34.0) L 08/05/22 14:25 MCHC 31.6 g/dL (33.0-35.0) L 08/05/22 14:25 RDW 18.8 % (11.6-16.5) H 08/05/22 14:25 Plt Count 177 X10^3/uL (150.0-450.0) 08/05/22 14:25 Plt Count Comment Adequate (ADEQUATE) 08/05/22 14:25 MPV 9.0 fL (7.4-11.0) 08/05/22 14:25 Neut % (Auto) 72.2 % (42.0-75.0) 08/05/22 14:25 Lymph % (Auto) 15.4 % (21.0-51.0) L 08/05/22 14:25 [place] % (Auto) 10.8 % (0.0-13.0) 08/05/22 14:25 Eos % (Auto) 0.7 % (0.9-2.9) L 08/05/22 14:25 Baso % (Auto) 0.9 % (0.2-1.0) 08/05/22 14:25 Neut # (Auto) 4.5 x10^3/uL (2.2-4.8) 08/05/22 14:25 Lymph # (Auto) 1.0 X10^3/uL (1.3-2.9) L 08/05/22 14:25 [place] # (Auto) 0.7 x10^3/uL (0.3-0.8) 08/05/22 14:25 Eos # (Auto) 0.0 x10^3/uL (0.0-0.2) 08/05/22 14:25 Baso # (Auto) 0.1 X10^3/uL (0.0-0.1) 08/05/22 14:25 Absolute Nucleated RBC 0.2 /100WBC 08/05/22 14:25 Plt Morphology Comment Normal (NORMAL) 08/05/22 14:25 RBC Morphology Abnormal (NORMAL) A 08/05/22 14:25 Hypochromasia 1+ A 08/05/22 14:25 Anisocytosis Slight A 08/05/22 14:25 Microcytosis Slight A 08/05/22 14:25 Sodium 139 mmol/L (136-145) 08/05/22 14:25 Corrected Sodium 147 mmol/L (136-145) H 08/05/22 14:25 Potassium 3.5 mmol/L (3.5-5.1) 08/05/22 14:25 Chloride 99 mmol/L (98-107) 08/05/22 14:25 Carbon Dioxide 28.3 mmol/L (21-32) 08/05/22 14:25 BUN 6 mg/dL (7-18) L 08/05/22 14:25 Creatinine 0.86 mg/dL (0.55-1.02) 08/05/22 14:25 Est GFR (MDRD) Af Amer > 60 (>60) 08/05/22 14:25 Est GFR (MDRD) Non-Af > 60 (>60) 08/05/22 14:25 Glucose 428 mg/dL (65-99) H 08/05/22 14:25 Calcium 9.1 mg/dL (8.5-10.1) 08/05/22 14:25 Corrected Calcium TNP 08/05/22 14:25 Total Bilirubin 0.60 mg/dL (0.2-1.0) 08/05/22 14:25 AST 21 Units/L (15-37) 08/05/22 14:25 ALT 19 Units/L (12-78) 08/05/22 14:25 Alkaline Phosphatase 96 Units/L (46-116) 08/05/22 14:25 Total Protein 7.9 g/dL (6.4-8.2) 08/05/22 14:25 Albumin 3.6 g/dL (3.4-5.0) 08/05/22 14:25 Globulin 4.3 g/dL (2.5-4.5) 08/05/22 14:25 Albumin/Globulin Ratio 0.8 Ratio (1.1-2.1) L 08/05/22 14:25 Lipase 15 Units/L (73-393) L 08/05/22 14:25 Specimen Type Clean catch urine 08/05/22 13:42 Urine Color Yellow (YELLOW) 08/05/22 13:42 Urine Appearance Cloudy (CLEAR) 08/05/22 13:42 Urine pH 7.0 (5.0 - 8.0) 08/05/22 13:42 Ur Specific [place] 1.010 (1.000-1.030) 08/05/22 13:42 Urine Protein 1+ (NEGATIVE) 08/05/22 13:42 Urine Glucose (UA) 4+ (NEGATIVE) 08/05/22 13:42 Urine Ketones 3+ (NEGATIVE) 08/05/22 13:42 Urine Blood 3+ (NEGATIVE) 08/05/22 13:42 Urine Nitrite Negative (NEGATIVE) 08/05/22 13:42 Urine Bilirubin Negative (NEGATIVE) 08/05/22 13:42 Urine Urobilinogen Normal (NORMAL) 08/05/22 13:42 Ur Leukocyte Esterase Negative (NEGATIVE) 08/05/22 13:42 Urine RBC 3-5 /HPF (0-3) A 08/05/22 13:42 Urine WBC None seen /HPF (0-5) 08/05/22 13:42 Ur Squamous Epith Cells Few /HPF (NEGATIVE) 08/05/22 13:42 Amorphous Sediment 3+ /HPF (NEGATIVE) 08/05/22 13:42 Urine Bacteria Trace /HPF (NEGATIVE) 08/05/22 13:42 Ur Culture Indicated? No/not indicated 08/05/22 13:42 Acetone, Semi-Quant Negative (NEGATIVE) 08/05/22 14:25 Labs acceptable. Opioid Opioid Risk Tool Age (Phani box if 16-45): No History of Preadolescent Sexual Abuse: No Total: 0 Total Score Risk Category: Low Risk Copyright: Oliver FISHMAN predicting aberrant behaviors Discharge Plan Diagnosis Discharge Problem: Intractable vomiting, Acute upper abdominal pain Discharge Plan Patient Disposition: 09 ADMITTED INPATIENT Condition: Stable
[2022-08-05 13:36] VITALS: BMI 20.3
[2022-08-05] MEDS ORDERED: NS 1,000 ML IV 1,000 ML IV ONE (13:40)
[2022-08-05] MEDS ORDERED: ZOFRAN INJ 4 MG VIAL IVP ONE (13:56)
[2022-08-05] MEDS ORDERED: DILAUDID INJ IVP ONE (13:56)
[2022-08-05] MEDS ORDERED: DILAUDID INJ ONE (14:05)
[2022-08-05] MEDS ORDERED: ZOFRAN INJ 4 MG VIAL ONE (14:05)
[2022-08-05] MEDS ORDERED: NS 1,000 ML IV 1,000 ML ONE (14:05)
[2022-08-05 14:10] LABS: BILIRUBIN,URINE NEGATIVE (NEGATIVE); BLOOD/HEMOGLOBIN,URINE 3+ (NEGATIVE); GLUCOSE, URINE 4+ (NEGATIVE); KETONES,URINE 3+ (NEGATIVE); LEUKOCYTE ESTERASE ,URINE NEGATIVE (NEGATIVE); NITRITES,URINE NEGATIVE (NEGATIVE); PROTEIN,URINE 1+ (NEGATIVE); UROBILINOGEN,URINE NORMAL (NORMAL)
[2022-08-05 14:11] LABS: APPEARANCE,URINE CLOUDY (CLEAR); COLOR,URINE YELLOW (YELLOW)
[2022-08-05 14:31] LABS: BACTERIA,URINE TRACE /HPF (NEGATIVE); SQUAMOUS EPITHELIAL CELL,UR FEW /HPF (NEGATIVE)
[2022-08-05 14:41] LABS: SERUM ACETONE NEGATIVE (NEGATIVE)
[2022-08-05 14:42] LABS: BASOPHILS # (AUTO) 0.1 X10^3/uL (0.0-0.1); BASOPHILS % (AUTO) 0.9 % (0.2-1.0); EOSINOPHILS % (AUTO) 0.7 % (0.9-2.9); HEMATOCRIT 33.3 % (36.0-47.0); HEMOGLOBIN 10.5 g/dL (12.0-16.0); LYMPHOCYTES % (AUTO) 15.4 % (21.0-51.0); MEAN CORPUSCULAR HEMOGLOBIN 23.3 pg (27.0-34.0); MEAN CORPUSCULAR HGB CONC 31.6 g/dL (33.0-35.0); MEAN CORPUSCULAR VOLUME 73.6 fL (80.0-100.0); MONOCYTES # (AUTO) 0.7 x10^3/uL (0.3-0.8); MONOCYTES % (AUTO) 10.8 % (0.0-13.0); NEUTROPHILS # (AUTO) 4.5 x10^3/uL (2.2-4.8); NEUTROPHILS % (AUTO) 72.2 % (42.0-75.0); RED BLOOD COUNT 4.52 X10^6/uL (3.5-5.4); RED CELL DISTRIBUTION WIDTH 18.8 % (11.6-16.5); WHITE BLOOD COUNT 6.2 X10^3/uL (3.6-10.0)
[2022-08-05 14:46] LABS: ALANINE AMINOTRANSFERASE 19 Units/L (12-78); ALBUMIN 3.6 g/dL (3.4-5.0); ALKALINE PHOSPHATASE 96 Units/L (46-116); ASPARTATE AMINO TRANSFERASE 21 Units/L (15-37); BLOOD UREA NITROGEN 6 mg/dL (7-18); CALCIUM 9.1 mg/dL (8.5-10.1); CARBON DIOXIDE 28.3 mmol/L (21-32); CHLORIDE 99 mmol/L (98-107); COR NA(FOR HYPERGLY) 147 mmol/L (136-145); CREATININE 0.86 mg/dL (0.55-1.02); LIPASE 15 Units/L (73-393); SODIUM 139 mmol/L (136-145); TOTAL PROTEIN 7.9 g/dL (6.4-8.2); eGFR NON BLACK RACES > 60 (>60)
[2022-08-05] MEDS ORDERED: NovoLIN R (or HumuLIN R) IV ONE (14:52)
[2022-08-05] MEDS ORDERED: NovoLIN R (or HumuLIN R) ONE (14:59)
[2022-08-05 15:01] LABS: ANISOCYTOSIS SLIGHT; HYPOCHROMASIA 1+; MICROCYTOSIS SLIGHT; PLATELET MORPHOLOGY COMMENT NORMAL (NORMAL)
[2022-08-05] MEDS ORDERED: PROTONIX INJ 40 MG VIAL IVP ONE (17:50)
[2022-08-05] MEDS: COREG TAB 12.5 MG PO SCH (20:08)
[2022-08-05] MEDS: SNACK - Diabetic Appropriate PO SCH (20:08)
[2022-08-05] MEDS: REMERON PO SCH (20:09)
[2022-08-05] MEDS: COLACE CAP 100 MG PO SCH (20:09)
[2022-08-05] MEDS: ZOFRAN INJ 4 MG VIAL IVP PRN (20:10)
[2022-08-05] MEDS: DILAUDID INJ IVP PRN (20:11)
[2022-08-05] MEDS: NovoLIN R (or HumuLIN R) SUBCUT PRN (20:12)
[2022-08-06] MEDS: ZOFRAN INJ 4 MG VIAL IVP PRN (02:40)
[2022-08-06] MEDS: DILAUDID INJ IVP PRN ×3 (02:41→21:08)
[2022-08-06] MEDS: NovoLIN R (or HumuLIN R) SUBCUT PRN ×2 (05:37→16:37)
[2022-08-06 06:09] LABS: BASOPHILS # (AUTO) 0.1 X10^3/uL (0.0-0.1); BASOPHILS % (AUTO) 1.4 % (0.2-1.0); EOSINOPHILS # (AUTO) 0.2 x10^3/uL (0.0-0.2); HEMOGLOBIN 8.6 g/dL (12.0-16.0); LYMPHOCYTES % (AUTO) 46.3 % (21.0-51.0); MEAN CORPUSCULAR HEMOGLOBIN 23.7 pg (27.0-34.0); MEAN CORPUSCULAR HGB CONC 31.9 g/dL (33.0-35.0); MEAN CORPUSCULAR VOLUME 74.2 fL (80.0-100.0); MONOCYTES # (AUTO) 0.5 x10^3/uL (0.3-0.8); MONOCYTES % (AUTO) 11.5 % (0.0-13.0); NEUTROPHILS # (AUTO) 1.5 x10^3/uL (2.2-4.8); NEUTROPHILS % (AUTO) 35.8 % (42.0-75.0); RED BLOOD COUNT 3.64 X10^6/uL (3.5-5.4); RED CELL DISTRIBUTION WIDTH 18.5 % (11.6-16.5); WHITE BLOOD COUNT 4.3 X10^3/uL (3.6-10.0)
[2022-08-06 06:20] LABS: ANISOCYTOSIS SLIGHT; HYPOCHROMASIA 1+; MICROCYTOSIS SLIGHT; PLATELET MORPHOLOGY COMMENT NORMAL (NORMAL)
[2022-08-06 06:27] LABS: ALANINE AMINOTRANSFERASE 15 Units/L (12-78); ALBUMIN 2.6 g/dL (3.4-5.0); ALKALINE PHOSPHATASE 72 Units/L (46-116); ASPARTATE AMINO TRANSFERASE 18 Units/L (15-37); BLOOD UREA NITROGEN 5 mg/dL (7-18); CALCIUM 8.1 mg/dL (8.5-10.1); CARBON DIOXIDE 31.5 mmol/L (21-32); CHLORIDE 99 mmol/L (98-107); COR CA(FOR HYPOALB) 9.2 mg/dL (8.5-10.1); COR NA(FOR HYPERGLY) 142 mmol/L (136-145); CREATININE 0.73 mg/dL (0.55-1.02); SODIUM 138 mmol/L (136-145); TOTAL PROTEIN 6.1 g/dL (6.4-8.2); eGFR NON BLACK RACES > 60 (>60)
[2022-08-06] MEDS ORDERED: POTASSIUM CHLORIDE LIQ 20 MEQ UDC PO PRN (08:31)
[2022-08-06] MEDS ORDERED: MICRO K EXTEN CAP 10 MEQ PO PRN (08:31)
[2022-08-06] MEDS ORDERED: KLOR-CON PO PRN (08:31)
[2022-08-06] MEDS ORDERED: POTASSIUM CHL 60 MEQ/NS 0.45% 500 ML IV PRN (08:31)
[2022-08-06] MEDS ORDERED: POTASSIUM CHL 40 MEQ/NS 0.45% 500 ML IV PRN (08:31)
[2022-08-06] MEDS ORDERED: K-DUR TAB 20 MEQ PO PRN (08:31)
[2022-08-06] MEDS ORDERED: K-RIDER 10 MEQ/NS 100 ML 10 MEQ/100 ML BAG IV PRN (08:31)
[2022-08-06] MEDS: COREG TAB 12.5 MG PO SCH ×2 (08:47→21:07)
[2022-08-06] MEDS: NORVASC TAB 5 MG PO SCH (08:47)
[2022-08-06] MEDS: LEXAPRO PO SCH (08:47)
[2022-08-06] MEDS: COLACE CAP 100 MG PO SCH ×2 (08:47→21:07)
[2022-08-06] MEDS ORDERED: EPHEDRINE SULFATE INJ ONE (12:04)
[2022-08-06] MEDS ORDERED: DIPRIVAN VIAL ONE (12:04)
[2022-08-06] MEDS ORDERED: XYLOCAINE 2 % (PLAIN) ONE (12:04)
[2022-08-06] MEDS ORDERED: VERSED ONE (12:04)
[2022-08-06] MEDS: MAGNESIUM SULFATE 1 GRAM/100 mL PREMIX 1 G/100 ML BAG IV PRN ×2 (12:59→14:55)
[2022-08-06] MEDS: REGLAN TAB 10 MG PO SCH ×2 (13:00→21:07)
--- NOTE | 2022-08-06 13:09 | DR.H&P ---
H&P History & Physical for Day of: H&P Date: 08/06/22 Chief Complaint Chief Complaint: Nausea vomiting, abdominal discomfort Allergies Allergies Allergy/AdvReac Type Severity Reaction Status Date / Time ketorolac [From Toradol] Allergy Verified 07/30/22 15:46 History of Present Illness History of Present Illness: This is a 47-year-old black female who is a known di abetic. She was admitted for DKA earlier in the week and was discharged from the hospital on August 04 after being admitted on the . She was admitted for diabetic gastroparesis and was doing better the day after mission was sent home. However she is back again the day after being discharged with same symptoms of nausea and vomiting. Patient likely has diabetic gastroparesis and will be gett ing a general surgery consult for EGD. In the meantime I will start her on Reglan to see if this helps with her symptoms. Past Medical History Past Medical History: Diabetes and Hypertension Additional Medical History: chronic pancreatitis Past Surgical History Surgical History: and Cholecystectomy Family History Family Medical History: Diabetes Mellitus and Hypertension Social History Does patient currently use any type of tobacco product: Yes Have you used tobacco products in the last 12 months: Yes Type of Tobacco Use: None How many years tobacco product used: 1 Alcohol Use: None Drug Use: None Medications Home Medications: ketorolac [From Toradol] Allergy (Verified 07/30/22 15:46) Labs Result Diagrams: 08/06/22 05:29 08/06/22 05:29 Labs: Laboratory WBC 4.3 X10^3/uL (3.6-10.0) 08/06/22 05: RBC 3.64 X10^6/uL (3.5-5.4) 08/06/22 05:29 Hgb 8.6 g/dL (12.0-16.0) L 08/06/22 05:29 Hct 27.0 % (36.0-47.0) L 08/06/22 05:29 MCV 74.2 fL (80.0-100.0) L 08/06/22 05: MCH 23.7 pg (27.0-34.0) L 08/06/22 05: MCHC 31.9 g/dL (33.0-35.0) L 08/06/22 05:29 RDW 18.5 % (11.6-16.5) H 08/06/22 05:29 Plt Count 155 X10^3/uL (150.0-450.0) 08/06/22 05:29 Plt Count Comment Adequate (ADEQUATE) 08/06/22 05:29 MPV 9.0 fL (7.4-11.0) 08/06/22 05:29 Neut % (Auto) 35.8 % (42.0-75.0) L 08/06/22 05:29 Lymph % (Auto) 46.3 % (21.0-51.0) 08/06/22 05:29 [place] % (Auto) 11.5 % (0.0-13.0) 08/06/22 05:29 Eos % (Auto) 5.0 % (0.9-2.9) H 08/06/22 05:29 Baso % (Auto) 1.4 % (0.2-1.0) H 08/06/22 05:29 Neut # (Auto) 1.5 x10^3/uL (2.2-4.8) L 08/06/22 05:29 Lymph # (Auto) 2.0 X10^3/uL (1.3-2.9) 08/06/22 05:29 [place] # (Auto) 0.5 x10^3/uL (0.3-0.8) 08/06/22 05:29 Eos # (Auto) 0.2 x10^3/uL (0.0-0.2) 08/06/22 05:29 Baso # (Auto) 0.1 X10^3/uL (0.0-0.1) 08/06/22 05:29 Absolute Nucleated RBC 0.1 /100WBC 08/06/22 05:29 Plt Morphology Comment Normal (NORMAL) 08/06/22 05:29 RBC Morphology Abnormal (NORMAL) A 08/06/22 05:29 Hypochromasia 1+ A 08/06/22 05:29 Anisocytosis Slight A 08/06/22 05:29 Microcytosis Slight A 08/06/22 05:29 Sodium 138 mmol/L (136-145) 08/06/22 05:29 Corrected Sodium 142 mmol/L (136-145) 08/06/22 05:29 Potassium 3.2 mmol/L (3.5-5.1) L 08/06/22 05:29 Chloride 99 mmol/L (98-107) 08/06/22 05:29 Carbon Dioxide 31.5 mmol/L (21-32) 08/06/22 05:29 BUN 5 mg/dL (7-18) L 08/06/22 05:29 Creatinine 0.73 mg/dL (0.55-1.02) 08/06/22 05:29 Est GFR (MDRD) Af Amer > 60 (>60) 08/06/22 05:29 Est GFR (MDRD) Non-Af > 60 (>60) 08/06/22 05:29 Glucose 274 mg/dL (65-99) H 08/06/22 05:29 Calcium 8.1 mg/dL (8.5-10.1) L 08/06/22 05:29 Corrected Calcium 9.2 mg/dL (8.5-10.1) 08/06/22 05:29 Magnesium 1.5 mg/dL (2.0-2.9) L 08/06/22 05:29 Total Bilirubin 0.30 mg/dL (0.2-1.0) 08/06/22 05:29 AST 18 Units/L (15-37) 08/06/22 05:29 ALT 15 Units/L (12-78) 08/06/22 05:29 Alkaline Phosphatase 72 Units/L (46-116) 08/06/22 05:29 Total Protein 6.1 g/dL (6.4-8.2) L 08/06/22 05:29 Albumin 2.6 g/dL (3.4-5.0) L 08/06/22 05:29 Globulin 3.5 g/dL (2.5-4.5) 08/06/22 05:29 Albumin/Globulin Ratio 0.7 Ratio (1.1-2.1) L 08/06/22 05:29 Lipase 15 Units/L (73-393) L 08/05/22 14:25 Specimen Type Clean catch urine 08/05/22 13:42 Urine Color Yellow (YELLOW) 08/05/22 13:42 Urine Appearance Cloudy (CLEAR) 08/05/22 13:42 Urine pH 7.0 (5.0 - 8.0) 08/05/22 13:42 Ur Specific [place] 1.010 (1.000-1.030) 08/05/22 13:42 Urine Protein 1+ (NEGATIVE) 08/05/22 13:42 Urine Glucose (UA) 4+ (NEGATIVE) 08/05/22 13:42 Urine Ketones 3+ (NEGATIVE) 08/05/22 13:42 Urine Blood 3+ (NEGATIVE) 08/05/22 13:42 Urine Nitrite Negative (NEGATIVE) 08/05/22 13:42 Urine Bilirubin Negative (NEGATIVE) 08/05/22 13:42 Urine Urobilinogen Normal (NORMAL) 08/05/22 13:42 Ur Leukocyte Esterase Negative (NEGATIVE) 08/05/22 13:42 Urine RBC 3-5 /HPF (0-3) A 08/05/22 13:42 Urine WBC None seen /HPF (0-5) 08/05/22 13:42 Ur Squamous Epith Cells Few /HPF (NEGATIVE) 08/05/22 13:42 Amorphous Sediment 3+ /HPF (NEGATIVE) 08/05/22 13:42 Urine Bacteria Trace /HPF (NEGATIVE) 08/05/22 13:42 Ur Culture Indicated? No/not indicated 08/05/22 13:42 Acetone, Semi-Quant Negative (NEGATIVE) 08/05/22 14:25 Review of Systems Constitutional: No Symptoms Reported Eyes: No Symptoms Reported ENT: No Symptoms Reported Respiratory: No Symptoms Reported Cardiovascular: No Symptoms Reported Gastrointestinal: Nausea, Vomiting and Abdominal Pain; denies Constipation or Melena Genitourinary: No Symptoms Reported Musculoskeletal: No Symptoms Reported Skin: No Symptoms Reported Neurological: No Symptoms Reported Physical Exam Vital Signs: Temperature 98.2 F Pulse Rate [Left] 68 Pulse Rate 89 Respiratory Rate 18 Blood Pressure [Left Arm] 104/61 Blood Pressure 189/119 O2 Sat by Pulse Oximetry 97 Oriented: Normal Eyes: Normal Ear: Normal Nose: Normal Respiratory: Clear Throughout Cardiovascular: Normal Auscultation: Bowel Sounds: Normal Palpation: Normal Tenderness: Epigastric Skin: Normal Musculoskeletal: Normal Psychiatric: Anxiety Mood Description: Calm Affect: Anxious and Normal Speech Pattern: Clear and Appropriate Assessment/Plan (1) Diabetic gastroparesis: Status: Acute (2) Nausea and vomiting: Status: Acute Plan: Plan on EGD per general surgery to see if they can find etiology of her chronic nausea vomiting. I suspect this is likely secondary to diabetic gastroparesis. (3) Acute hypokalemia: Status: Acute
[2022-08-06] MEDS: SNACK - Diabetic Appropriate PO SCH (19:24)
[2022-08-06] MEDS: REMERON PO SCH (21:07)
[2022-08-07] MEDS ORDERED: ZOFRAN INJ 4 MG VIAL ONE ×2 (02:15→08:03)
[2022-08-07] MEDS ORDERED: DILAUDID INJ ONE ×2 (02:16→08:03)
[2022-08-07] MEDS: DILAUDID INJ IVP PRN ×2 (02:20→08:11)
[2022-08-07] MEDS: ZOFRAN INJ 4 MG VIAL IVP PRN ×2 (02:20→08:10)
[2022-08-07] MEDS ORDERED: REGLAN TAB 10 MG PO ONE (04:39)
[2022-08-07] MEDS: REGLAN TAB 10 MG PO SCH (05:18)
[2022-08-07 05:50] LABS: BASOPHILS % (AUTO) 0.5 % (0.2-1.0); EOSINOPHILS # (AUTO) 0.1 x10^3/uL (0.0-0.2); HEMATOCRIT 27.5 % (36.0-47.0); HEMOGLOBIN 8.7 g/dL (12.0-16.0); LYMPHOCYTES # (AUTO) 1.3 X10^3/uL (1.3-2.9); LYMPHOCYTES % (AUTO) 30.1 % (21.0-51.0); MEAN CORPUSCULAR HEMOGLOBIN 23.7 pg (27.0-34.0); MEAN CORPUSCULAR HGB CONC 31.7 g/dL (33.0-35.0); MEAN CORPUSCULAR VOLUME 74.7 fL (80.0-100.0); MEAN PLATELET VOLUME 8.8 fL (7.4-11.0); MONOCYTES # (AUTO) 0.4 x10^3/uL (0.3-0.8); MONOCYTES % (AUTO) 8.7 % (0.0-13.0); NEUTROPHILS # (AUTO) 2.5 x10^3/uL (2.2-4.8); NEUTROPHILS % (AUTO) 57.7 % (42.0-75.0); RED BLOOD COUNT 3.68 X10^6/uL (3.5-5.4); RED CELL DISTRIBUTION WIDTH 18.6 % (11.6-16.5); WHITE BLOOD COUNT 4.4 X10^3/uL (3.6-10.0)
[2022-08-07 05:58] LABS: ALANINE AMINOTRANSFERASE 44 Units/L (12-78); ALBUMIN 2.6 g/dL (3.4-5.0); ALKALINE PHOSPHATASE 94 Units/L (46-116); ASPARTATE AMINO TRANSFERASE 116 Units/L (15-37); BLOOD UREA NITROGEN 5 mg/dL (7-18); CALCIUM 8.2 mg/dL (8.5-10.1); CARBON DIOXIDE 30.8 mmol/L (21-32); CHLORIDE 102 mmol/L (98-107); COR CA(FOR HYPOALB) 9.3 mg/dL (8.5-10.1); COR NA(FOR HYPERGLY) 139 mmol/L (136-145); CREATININE 0.74 mg/dL (0.55-1.02); MAGNESIUM 1.7 mg/dL (2.0-2.9); SODIUM 137 mmol/L (136-145); TOTAL PROTEIN 6.1 g/dL (6.4-8.2); eGFR NON BLACK RACES > 60 (>60)
[2022-08-07 06:29] LABS: ANISOCYTOSIS SLIGHT; HYPOCHROMASIA 1+; MICROCYTOSIS SLIGHT; PLATELET MORPHOLOGY COMMENT NORMAL (NORMAL)
[2022-08-07] MEDS ORDERED: COLACE CAP 100 MG PO ONE (08:03)
[2022-08-07] MEDS ORDERED: NORVASC TAB 5 MG ONE (08:04)
[2022-08-07] MEDS ORDERED: COREG TAB 12.5 MG ONE (08:04)
[2022-08-07] MEDS ORDERED: MAGNESIUM SULFATE 1 GRAM/100 mL PREMIX 1 G/100 ML BAG IV ONE (08:04)
[2022-08-07] MEDS ORDERED: LEXAPRO ONE (08:04)
[2022-08-07] MEDS: MAGNESIUM SULFATE 1 GRAM/100 mL PREMIX 1 G/100 ML BAG IV PRN (08:09)
[2022-08-07] MEDS: NORVASC TAB 5 MG PO SCH (08:10)
[2022-08-07] MEDS: COLACE CAP 100 MG PO SCH (08:11)
[2022-08-07] MEDS: COREG TAB 12.5 MG PO SCH (08:11)
[2022-08-07] MEDS: LEXAPRO PO SCH (08:11)
[2022-08-07 08:37] VITALS: BP 122/82
== END 2022-08-07 10:30 | disposition home or self-care (01) ==
LOC: MED/SURG 13:29 → ER 13:29 → MED/SURG 18:01
PROVIDERS: ADMIT Family Medicine; ATTEND Family Medicine
DX: E11.43 Type 2 diabetes mellitus with diabetic autonomic (poly)neuropathy; M54.89 Other dorsalgia; R12 Heartburn; I10 Essential (primary) hypertension; R11.2 Nausea with vomiting, unspecified; R07.89 Other chest pain; K29.00 Acute gastritis without bleeding; K31.84 Gastroparesis; K21.00 Gastro-esophageal reflux disease with esophagitis, without bleeding; E87.6 Hypokalemia; R10.84 Generalized abdominal pain